=== PATIENT | male | born 1975 | race Caucasian/White ===

== ENCOUNTER 2024-09-09 13:45 | Emergency (ER) | payer OTHER ==
[~2024-09-09] VITALS: Ht 170.2 cm; Wt 88.5 kg
[2024-09-09 14:17] LABS: BASOPHILS ABSOLUTE AUTO 0.15 K/mm3 (0.00-0.23); BASOPHILS PERCENT AUTO 1 % (0-2); EOSINOPHILS ABSOLUTE AUTO 1.24 K/mm3 (0.00-0.68); EOSINOPHILS PERCENT AUTO 10 % (0-6); Hematocrit 46.9 % (37.0-53.0); Hemoglobin 15.9 g/dL (13.5-17.5); IMMATURE GRAN ABSOLUTE AUTO 0.03 K/mm3 (0.00-0.10); IMMATURE GRAN PERCENT AUTO 0 % (0-1); LYMPHOCYTES ABSOLUTE AUTO 4.61 K/mm3 (0.84-5.20); LYMPHOCYTES PERCENT AUTO 37 % (21-46); MONOCYTES ABSOLUTE AUTO 1.15 K/mm3 (0.16-1.47); MONOCYTES PERCENT AUTO 9 % (4-13); Mean Corpuscular HGB 31.1 pg (26.0-34.0); Mean Corpuscular HGB Conc 33.9 g/dL (31.5-36.5); Mean Corpuscular Volume 92 fL (80-100); Mean Platelet Volume 10.2 fL (9.1-12.4); NEUTROPHILS ABSOLUTE AUTO 5.26 K/mm3 (1.96-9.15); NEUTROPHILS PERCENT AUTO 42 % (41-73); Platelet Count 292 K/mm3 (150-400); RDW Coefficient Variation 12.9 % (11.7-14.2); RDW Standard Deviation 43.8 fL (35.1-46.3); Red Blood Cell Count 5.11 M/mm3 (4.30-5.90); White Blood Cell Count 12.44 K/mm3 (4.00-11.30)
[2024-09-09] MEDS ORDERED: ZOLOFT25 MG PO (14:28)
[2024-09-09] MEDS ORDERED: AMPDEX30CR (14:29)
[2024-09-09] MEDS ORDERED: OLME20 PO (14:29)
[2024-09-09 14:30] LABS: Bun/Creatinine Ratio 17.8 (12.0-20.0); Calcium, Blood 8.4 mg/dL (8.5-10.1); Creatinine, Blood 0.79 mg/dL (0.60-1.20); Potassium, Blood 4.1 mmol/L (3.5-5.5)
== END 2024-09-09 17:45 | disposition home or self-care (01) ==
LOC: ER 13:45
PROVIDERS: Student in an Organized Health Care Education/Training Program
DX: R40.4 Transient alteration of awareness (principal); R41.0 Disorientation, unspecified; T41.295A Adverse effect of other general anesthetics, initial encounter
CPT/HCPCS: 80048; 85025; 99284